=== PATIENT | female | born 1965 | race Caucasian/White ===

== ENCOUNTER 2019-11-16 08:29 | Outpatient (CLI) | payer BC, SELFPAY ==
[2019-11-16 09:39] LABS: Basophils Absolute Auto 0.1 K/mm3 (0.0-0.1); Basophils Percent Auto 0.7 % (0.2-1.2); Eosinophils Absolute Auto 0.2 K/mm3 (0-0.3); Eosinophils Percent Auto 2.5 % (0-4.4); Hematocrit 40.9 % (37.0-47.0); Hemoglobin 12.3 g/dL (12.0-15.0); Immature Granulocyte Absolute 0.03 K/mm3 (0.00-0.031); Immature Granulocyte Percent A 0.4 % (0-0.5); Lymphocytes Absolute Auto 2.37 K/mm3 (0.9-3.2); Mean Corpuscular HGB Conc 30.1 g/dl (32-36); Mean Corpuscular Hemoglobin 20.6 pg (26-34); Mean Corpuscular Volume 68.4 fl (80-100); Monocytes Absolute Auto 0.4 K/mm3 (0.1-0.6); Monocytes Percent Auto 6.1 % (2.6-8.5); Neutrophils Absolute Auto 4.1 K/mm3 (1.3-6.7); Neutrophils Percent Auto 57.3 % (45.5-73.1); Platelet Count Result 384 k/mm3 (150-375); Red Blood Count 5.98 M/mm3 (4.2-5.4); Red Cell Distribution Width 19.9 % (11.5-14.5); White Blood Count 7.2 K/mm3 (4.5-10.0)
[2019-11-16 09:56] LABS: Alanine Aminotransferase 55 U/L (4-35); Albumin Level 4.4 g/dL (3.5-5.1); Alkaline Phosphatase 123 U/L (38-126); Aspartate Amino Transferase 35 U/L (14-36); Bilirubin,Total 0.4 mg/dL (0.2-1.3); Blood Urea Nitrogen 18 mg/dL (7-17); Calcium 9.7 mg/dL (8.4-10.2); Carbon Dioxide 29 mmol/L (22-30); Chloride 98 mmol/L (98-107); Cholesterol 212 mg/dL (0-200); Creatine Kinase 65 U/L (30-135); Estimated Glomerular Filt Rate > 60; Glucose 135 mg/dL (65-105); HDL Direct 57 mg/dL; Potassium 4.4 mmol/L (3.4-5.0); Sodium 141 mmol/L (137-145); Triglycerides 153 mg/dL (<150); Uric Acid 3.9 mg/dL (2.5-7.5)
[2019-11-16 10:04] LABS: Creatinine Urine 219.3 mg/dL
[2019-11-16 10:07] LABS: LDL Cholesterol Direct 119 mg/dL
[2019-11-16 10:11] LABS: MALB Creatinine Ratio 5.2 mg/g (0-30); Microalbumin Urine Random 11.4 mg/L (0-16.7)
[2019-11-16 10:23] LABS: Vitamin D 25 Hydroxy 20.9 ng/mL
[2019-11-16 10:35] LABS: Add Urine Microscopic? YES; Appearance Urine Cloudy (Clear); Bacteria Urine Trace /hpf; Bilirubin Urine Negative (Negative); Blood Urine Negative (Negative); Color Urine Yellow (Yellow); Glucose Urine UA 3+ mg/dL (Negative); Ketones Urine Negative (Negative); Leukocyte Esterase Ur Negative LEU/UL (Negative); Mucus Urine Rare /lpf; Nitrate Urine Negative (Negative); Protein Urine Negative (Negative); Specific Grav Ur 1.036 (1.001-1.035); Squamous Epithelial Cell Urine Many /hpf (Few); Urobilinogen Urine Negative mg/dL (<2.0)
== END 2019-11-16 08:30 | disposition home or self-care (01) ==
PROVIDERS: PCP Nurse Practitioner Family; Visit Provider Student in an Organized Health Care Education/Training Program
DX: Z13.29 Encounter for screening for other suspected endocrine disorder (principal); Z13.228 Encounter for screening for other metabolic disorders; Z13.0 Encounter for screening for diseases of the blood and blood-forming organs and certain disorders involving the immune mechanism; E11.9 Type 2 diabetes mellitus without complications; Z79.4 Long term (current) use of insulin
CPT/HCPCS: 36415; 80053; 80061; 81001; 82043; 82306; 82550; 84443; 84550; 85025

== ENCOUNTER 2020-05-15 08:10 | Outpatient (CLI) | payer BC, SELFPAY ==
[2020-05-15 08:42] LABS: Cholesterol 156 mg/dL (0-200); HDL Direct 46 mg/dL; Triglycerides 132 mg/dL (<150)
[2020-05-15 08:55] LABS: LDL Cholesterol Direct 80 mg/dL
== END 2020-05-15 08:11 | disposition home or self-care (01) ==
PROVIDERS: PCP Nurse Practitioner Family; Visit Provider Nurse Practitioner Family
DX: Z13.220 Encounter for screening for lipoid disorders (principal)
CPT/HCPCS: 36415; 80061

== ENCOUNTER 2020-12-19 07:19 | Outpatient (CLI) | payer BC, SELFPAY ==
[2020-12-19 07:43] LABS: Basophils Percent Auto 0.6 % (0.2-1.2); Eosinophils Absolute Auto 0.1 K/mm3 (0-0.3); Hematocrit 41.9 % (37.0-47.0); Hemoglobin 12.9 g/dL (12.0-15.0); Immature Granulocyte Absolute 0.02 K/mm3 (0.00-0.031); Immature Granulocyte Percent A 0.3 % (0-0.5); Lymphocytes Absolute Auto 1.95 K/mm3 (0.9-3.2); Lymphocytes Percent Auto 27.3 % (18.3-44.2); Mean Corpuscular HGB Conc 30.8 g/dl (32-36); Mean Corpuscular Hemoglobin 22.1 pg (26-34); Mean Corpuscular Volume 71.6 fl (80-100); Mean Platelet Volume 8.9 fl (7.4-10.4); Monocytes Absolute Auto 0.5 K/mm3 (0.1-0.6); Monocytes Percent Auto 6.9 % (2.6-8.5); Neutrophils Absolute Auto 4.5 K/mm3 (1.3-6.7); Neutrophils Percent Auto 62.9 % (45.5-73.1); Platelet Count Result 309 k/mm3 (150-375); Red Blood Count 5.85 M/mm3 (4.2-5.4); Red Cell Distribution Width 17.4 % (11.5-14.5); White Blood Count 7.1 K/mm3 (4.5-10.0)
[2020-12-19 07:52] LABS: Hemoglobin A1C 6.9 % (<5.7)
[2020-12-19 07:54] LABS: Alanine Aminotransferase 37 U/L (4-35); Albumin Level 4.5 g/dL (3.5-5.1); Alkaline Phosphatase 93 U/L (38-126); Anion Gap 6 mmol/L (8-16); Aspartate Amino Transferase 31 U/L (14-36); Bilirubin,Total 0.1 mg/dL (0.2-1.3); Blood Urea Nitrogen 16 mg/dL (7-17); Calcium 9.5 mg/dL (8.4-10.2); Carbon Dioxide 31 mmol/L (22-30); Chloride 103 mmol/L (98-107); Cholesterol 207 mg/dL (0-200); Estimated Glomerular Filt Rate > 60; Glucose 135 mg/dL (65-105); HDL Direct 58 mg/dL; Potassium 4.1 mmol/L (3.4-5.0); Sodium 140 mmol/L (137-145); Triglycerides 125 mg/dL (<150)
[2020-12-19 08:05] LABS: LDL Cholesterol Direct 107 mg/dL
[2020-12-19 08:09] LABS: Creatinine Urine 163.3 mg/dL
[2020-12-19 08:12] LABS: MALB Creatinine Ratio 19.5 mg/g (0-30); Microalbumin Urine Random 31.9 mg/L (0-16.7)
[2020-12-22 09:16] LABS: Vitamin D 1,25 (OH)2 Total 32 pg/mL (18-72); Vitamin D2 1,25 (OH)2 <8 pg/mL; Vitamin D3 1,25 (OH)2 32 pg/mL
== END 2020-12-19 07:20 | disposition home or self-care (01) ==
PROVIDERS: PCP Nurse Practitioner Family; Visit Provider Student in an Organized Health Care Education/Training Program
DX: E11.9 Type 2 diabetes mellitus without complications (principal); Z79.4 Long term (current) use of insulin; E03.9 Hypothyroidism, unspecified; R79.89 Other specified abnormal findings of blood chemistry; I10 Essential (primary) hypertension
CPT/HCPCS: 36415; 80053; 80061; 82043; 82652; 83036; 84443; 85025

== ENCOUNTER 2021-03-06 07:33 | Outpatient (CLI) | payer BC, SELFPAY ==
[2021-03-06 08:38] LABS: Alanine Aminotransferase 35 U/L (4-35); Albumin Level 4.3 g/dL (3.5-5.1); Alkaline Phosphatase 98 U/L (38-126); Aspartate Amino Transferase 33 U/L (14-36); Bilirubin,Total 0.5 mg/dL (0.2-1.3)
[2021-03-06 11:50] LABS: Iron 45 ug/dL (37-170); Percent Iron Saturation 11 % (20-50)
[2021-03-06 12:13] LABS: Ferritin 6.73 ng/mL (11.1-264)
== END 2021-03-06 07:34 | disposition home or self-care (01) ==
PROVIDERS: PCP Nurse Practitioner Family; Visit Provider Student in an Organized Health Care Education/Training Program
DX: R74.8 Abnormal levels of other serum enzymes (principal); R79.89 Other specified abnormal findings of blood chemistry
CPT/HCPCS: 36415; 80076; 82728; 83540; 83550

== ENCOUNTER 2021-07-05 11:34 | Emergency (ER) | payer BC, SELFPAY ==
--- NOTE | ~2021-07-05 | XR_ITS ---
XR chest 1V portable DATE: 07/05/2021 12:29 INDICATION: Shortness of breath, tachycardia. Hypertension. TECHNIQUE: Portable upright AP chest on 07/05/2021 at 1220 hours COMPARISON: 11/06/2015 PA and lateral chest FINDINGS: Normal heart size. No hilar or mediastinal enlargement. No pulmonary infiltrate or consolid ation. There is slight blunting of the costophrenic angles; minimal pleural effusions are not exclude d. No pneumothorax. Included skeletal structures are unremarkable. IMPRESSION: No active cardiopulmonary disease Reviewed, dictated and finalized at location A.
[2021-07-05 11:43] VITALS: BP 174/105; PULSE 124; RESP 19; TEMP 37.1; O2SAT 99
[2021-07-05 11:47] VITALS: PULSE 124
[2021-07-05 11:48] VITALS: O2SAT 99
--- NOTE | 2021-07-05 11:50 | ECG_ITS ---
Measurements Intervals [place] Rate: 117 P: 45 DE: 164 QRS: -5 QRSD: 97 T: 89 QT: 269 QTc: 376 Interpretive Statements SINUS TACHYCARDIA DELAYED PRECORDIAL R/S TRANSITION CONSIDER INFERIOR INFARCT, AGE INDETERMINATE BORDERLINE ST-T WAVE ABNORMALITY- HIGH LATERAL LEADS BASELINE ARTIFACT- I, II, III, AVR, AVL, AVF, V1-V6 ABNORMAL ECG Electronically Signed On 07-05-2021 18:11:35 CDT by Arian Can D.O.
--- NOTE | 2021-07-05 12:06 | ED.SOB ---
HPI - SOB/Dyspnea General Chief Complaint: Shortness of Breath/Dyspnea Stated Complaint: DUMAS, SOB, bodyaches, covid vaccinated Time Seen by Provider: 07/05/21 12:04 Source: patient Mode of arrival: ambulatory Limitations: no limitations History of Present Illness HPI Narrative: 56-year-old female with no significant past medical history complaining 3 days of headache body aches and now with nausea starting this morning. Does complain of fever and chills at home, no vomiting, no abdominal pain. No chest pain, no cough. Patient states she did get her cope vaccine in February and March [employer]. No other complaints patient did not get influenza shot. No known sick contacts. Related Data Allergies Allergy/AdvReac Type Severity Reaction Status Date / Time No Known Allergies Allergy Verified 07/05/21 11:50 Review of Systems Review of Systems: CONSTITUTIONAL: fever at home, no weight loss, no confusion EYES: no vision changes, no eye pain ENT: no rhinorrhea, no sore throat, no difficulty swallowing CARDIOVASCULAR: no chest pain, no leg edema, no palpitations RESPIRATORY: positive for cough, positive for shortness of breath, no hemoptysis GASTROINTESTINAL: no abdominal pain, positive for nausea, no vomiting, no diarrhea GENITOURINARY: no flank pain, no dysuria, no hematuria SKIN: no rash, no jaundice MUSCULOSKELETAL: no back pain, no trauma. NEUROLOGIC: No headache, no dizziness, no focal weakness PSYCHIATRIC: No hallucinations, no suicidal ideation [facility] Family History Family History Mother Hypertension Family history of kidney disease Family history of diabetes mellitus in first degree relative Family history of heart disease in male family member before age 55 Social History Social History Alcohol intake: never Exam Narrative: General: alert, afebrile, answering all questions appropriately Head: normocephalic, atraumatic Eyes: EOMI bilaterally, anicteric, no injection ENT: moist mucous membranes, oropharynx patent, no rhinorrhea Neck: supple, trachea midline, no JVD Chest: equal chest rise bilaterally, no chest wall trauma noted Lungs: clear to auscultation bilaterally, respirations unlabored CV: tachycardia, no ALEXIS B, calf size equal bilaterally Abd: soft, non-distended, non-tender, no rebound, no gaurding, negative Varela's : no CVA tenderness B, bladder non-distended Back: no lumbar bony tenderness. paraspinal muscles without spasm EXT: no deformity noted, moving all extremities equally Skin: warm, dry, no pallor Neuro: alert, oriented x 3; CN 2-12 grossly intact, no dysarthria Psych: affect appropriate, though content normal Course Course Emergency Course: Patient remained afebrile in the ED 100% on room air. Pulse is 97 at rest, increases with activity patient got 2 L of fluid, feels somewhat better no headache, ambulating without difficulty. Spoke at length with patient regarding results. She will return immediately fever, intractable vomiting, increasing shortness of breath inability to tolerate fluids or medications or worsening pain. She will follow up with her primary doctor this week. No vomiting in the ED, tolerating p.o., abdomen soft and afebrile. Vital Signs Vital signs: Vital Signs Temperature 37.1 C 07/05/21 11:43 Pulse Rate 124 H 07/05/21 11:43 Respiratory Rate 19 07/05/21 11:43 Blood Pressure 174/105 H 07/05/21 11:43 Pulse Oximetry 99 07/05/21 11:43 Temperature 37.1 C 07/05/21 11:43 Pulse Rate 110 H 07/05/21 14:53 Respiratory Rate 22 H 07/05/21 14:53 Blood Pressure 130/93 H 07/05/21 14:53 Pulse Oximetry 100 07/05/21 14:53 MDM - SOB/Dyspnea Differential Diagnosis Differential diagnosis: Likely community acquired pneumonia and other (viral syndrome, COVID, influenza, UTI) Lab Data Result diagrams: 07/05/21 12:04 07/05/21 12:04
[2021-07-05 12:13] LABS: Basophils Absolute Auto 0.1 K/mm3 (0.0-0.1); Basophils Percent Auto 0.5 % (0.2-1.2); Eosinophils Absolute Auto 0.1 K/mm3 (0-0.3); Eosinophils Percent Auto 0.5 % (0-4.4); Hematocrit 35.1 % (37.0-47.0); Hemoglobin 11.2 g/dL (12.0-15.0); Immature Granulocyte Absolute 0.06 K/mm3 (0.00-0.031); Immature Granulocyte Percent A 0.5 % (0-0.5); Lymphocytes Absolute Auto 3.39 K/mm3 (0.9-3.2); Lymphocytes Percent Auto 30.8 % (18.3-44.2); Mean Corpuscular HGB Conc 31.9 g/dl (32-36); Mean Corpuscular Hemoglobin 22.6 pg (26-34); Mean Corpuscular Volume 70.8 fl (80-100); Mean Platelet Volume 9.2 fl (7.4-10.4); Monocytes Absolute Auto 0.6 K/mm3 (0.1-0.6); Monocytes Percent Auto 5.7 % (2.6-8.5); Neutrophils Absolute Auto 6.8 K/mm3 (1.3-6.7); Platelet Count Result 368 k/mm3 (150-375); Red Blood Count 4.96 M/mm3 (4.2-5.4)
[2021-07-05 12:20] LABS: Anion Gap 13 mmol/L (8-16); Blood Urea Nitrogen 36 mg/dL (7-17); Calcium 9.5 mg/dL (8.4-10.2); Carbon Dioxide 25 mmol/L (22-30); Chloride 100 mmol/L (98-107); Estimated CRCL calculation 82 ml/min; Estimated Glomerular Filt Rate > 60; Glucose 191 mg/dL (65-110); Potassium 3.3 mmol/L (3.4-5.0); Sodium 138 mmol/L (137-145)
[2021-07-05] MEDS: SODIUM CHLORIDE 0.9% IV 1,000 ML 999 ML IV CONT (12:23)
[2021-07-05] MEDS: ONDANSETRON INJ 4 MG/2 ML VIAL IV PUSH (12:24)
[2021-07-05 12:30] VITALS: BP 135/86; PULSE 106; RESP 16; O2SAT 99
[2021-07-05 13:26] LABS: Add Urine Microscopic? YES; Appearance Urine Clear (Clear); Bilirubin Urine Negative (Negative); Blood Urine 1+ (Negative); Color Urine Straw (Yellow); Glucose Urine UA 3+ mg/dL (Negative); Ketones Urine Negative (Negative); Leukocyte Esterase Ur Negative LEU/UL (Negative); Mucus Urine Rare /lpf; Nitrate Urine Negative (Negative); Protein Urine Negative (Negative); RBC Urine 0-2 /hpf (0-2); Specific Grav Ur 1.026 (1.001-1.035); Squamous Epithelial Cell Urine Occasional /hpf (Few); Urobilinogen Urine Negative mg/dL (<2.0); WBC Urine 0-3 /hpf
[2021-07-05 13:40] VITALS: BP 125/75; PULSE 91; RESP 14; O2SAT 100
[2021-07-05 14:53] VITALS: BP 130/93; PULSE 110; RESP 22; O2SAT 100
== END 2021-07-05 14:57 | disposition home or self-care (01) ==
PROVIDERS: Emergency Medicine; Emergency Provider Emergency Medicine; PCP Nurse Practitioner Family
DX: B34.9 Viral infection, unspecified (principal); E86.0 Dehydration; R00.0 Tachycardia, unspecified; R94.31 Abnormal electrocardiogram [ECG] [EKG]
CPT/HCPCS: 36415; 71045; 80048; 81001; 85025; 87804; 93005; 96361; 96374; 99284; J2405; J7030

== ENCOUNTER 2022-09-14 12:15 | Emergency (ER) | payer BC, SELFPAY ==
[2022-09-14] VITALS (24 sets, daily range): BP systolic 114–147; BP diastolic 57–89; PULSE 78–118; RESP 13–27; TEMP 37.3; O2SAT 94–100
--- NOTE | ~2022-09-14 | US_ITS ---
US abdomen limited DATE: 09/14/2022 19:10 INDICATION: Vomiting. Transaminitis. TECHNIQUE: Real-time imaging of liver, pancreas, gallbladder COMPARISON: 09/14/2022 CT abdomen pelvis FINDINGS: No hepatic or pancreatic space-occupying mass lesion is demonstrated. Normal hepatopedal po rtal venous flow direction. No gallstones or gallbladder wall thickening or abnormal pericholecystic fluid collection. Negative s onographic Varela's sign. Common bile duct measures 4.9 mm, within normal limits. IMPRESSION: No significant abnormality Reviewed, dictated and finalized at Location [facility]. Reviewed, dictated and finalized at location A. R MEDIATOR IMPRESSION: No significant abnormality
--- NOTE | ~2022-09-14 | CT_ITS ---
EXAMINATION: CT abdomen pelvis w con DATE: 09/14/2022 18:08 INDICATION: Nausea and vomiting. Transaminitis. TECHNIQUE: Computed tomography (CT) of the abdomen and pelvis was performed with 100 CC Omnipaque 350 intravenous contrast. Automated exposure control and iterative reconstruction technique were employe d. Exam dose: 1069.94 mGy-cm total exam DLP. COMPARISON: 09/14/2022 Limited abdominal ultrasound is not available at this time FINDINGS: The lung bases are clear. Normal heart size. No pericardial or pleural effusion. Small sliding hiatal hernia. Postoperative change of the stomach. 8 mm cyst of the medial segment of the left hepatic lobe. No other hepatic space-occupying mass lesio n is evident. The gallbladder is present; no gallbladder wall thickening or pericholecystic fluid or fat stranding. No bile duct dilatation. No pancreatic mass lesion or pancreatic duct dilatation. Normal morphology of the adrenal glands. No renal mass lesion no ureteral calculus or hydroureteronephrosis. The urinary bladder, uterus and a dnexal areas are unremarkable. Normal caliber of the abdominal aorta. No intraperitoneal or retroperitoneal or pelvic mass lesion or adenopathy or ascites. No bowel obstruction, bowel wall thickening, pneumatosis or intraperitoneal free air. Small fat-containing umbilical hernia. No suspicious osteolytic or osteoblastic lesions. Degenerative changes apophyseal joints at L5-S1 with associated grade 1 anterolisthesis at this level . IMPRESSION: Small sliding hiatal hernia Postoperative change of the stomach No bowel obstruction or free air 8 mm segment left hepatic cyst Reviewed, dictated and finalized at [facility]. Reviewed, dictated and finalized at location A. ING DIRECTOR
--- NOTE | ~2022-09-14 | XR_ITS ---
Clinical Indication: Syncope PA and lateral views of the chest: Comparison: 07/05/2021 Findings: The lungs are clear, without evidence of focal consolidation or pleural effusion. Cardiome diastinal silhouette is within normal limits. Bones and soft tissues are unremarkable. Impression: Normal chest. Reviewed, dictated and finalized at location . SHED HARDWARE ERECTOR Impression: Normal chest.
[2022-09-14 13:05] LABS: Glucose Point of Care 196 mg/dl (65-105)
--- NOTE | 2022-09-14 16:03 | ECG_ITS ---
Measurements Intervals [place] Rate: 116 P: 34 NH: 172 QRS: 4 QRSD: 94 T: 11 QT: 355 QTc: 494 Interpretive Statements SINUS TACHYCARDIA NONSPECIFIC ST AND T-WAVE ABNORMALITY ABNORMAL RHYTHM ECG COMPARED TO ECG 07/05/2021 11:51:57 NO SIGNIFICANT CHANGES Electronically Signed On 09-15-2022 17:46:52 [employer]ACHER [employer]IVATE by Beni Zamorano M.D.
[2022-09-14 16:28] LABS: Alanine Aminotransferase 323 U/L (6-35); Albumin Level 4.6 g/dL (3.5-5.1); Alkaline Phosphatase 136 U/L (38-126); Anion Gap 11 mmol/L (8-16); Aspartate Amino Transferase 213 U/L (14-36); Bilirubin,Total 0.5 mg/dL (0.2-1.3); Blood Urea Nitrogen 19 mg/dL (7-17); Calcium 8.6 mg/dL (8.4-10.2); Carbon Dioxide 23 mmol/L (22-30); Chloride 95 mmol/L (98-107); Estimated CRCL calculation 106 ml/min; Estimated Glomerular Filt Rate > 60; Glucose 180 mg/dL (65-110); Lipase 214 U/L (23-300); Potassium 3.7 mmol/L (3.4-5.0); Sodium 129 mmol/L (137-145)
[2022-09-14] MEDS: SODIUM CHLORIDE 0.9% IV 1,000 ML 999 ML IV CONT (16:36)
[2022-09-14 16:40] LABS: Troponin I < 0.012 ng/mL (0.000-0.034)
--- NOTE | 2022-09-14 16:53 | ED.NAVMDI ---
HPI - Nausea/Vomiting/Diarrhea General Chief complaint: Nausea/Vomiting/Diarrhea Stated complaint: nausea/syncopal episode Time Seen by Provider: 09/14/22 16:03 Source: patient Mode of arrival: ambulatory Limitations: no limitations History of Present Illness HPI Narrative: This is a 57 year old female that presents to the ER for syncopal episode today. Reports she has not been feeling well. Reports abdominal discomfort, nausea, vomiting, chills, and malaise. Reports she thought she was coming down with the flu. She was at her daughter's house, but left to go home since she was not feeling well. Reports she started to feel lightheaded and dizzy. Reports she pulled over and passed out. Denies fever, chest pain, shortness of breath, palpitations, diarrhea, or dysuria. Related Data Allergies Allergy/AdvReac Type Severity Reaction Status Date / Time No Known Allergies Allergy Verified 07/05/21 11:50 Review of Systems Review of Systems: CONSTITUTIONAL: Reports chills. Denies fever EYES: Denies visual changes ENT: Denies rhinorrhea, congestion, sore throat CARDIOVASCULAR: Denies chest pain, palpitations, or edema. RESPIRATORY: Denies cough or dyspnea. GASTROINTESTINAL: Reports abdominal pain, nausea, vomiting GENITOURINARY: Denies dysuria or hematuria. SKIN: Denies rash MUSCULOSKELETAL: Reports myalgia. NEUROLOGIC: Reports generalized weakness. All systems reviewed & are unremarkable except as noted in HPI and below PMFSH Past Medical History Medical History (Updated 09/14/22 @ 20:30 by Lety Drake PA-C) History of diabetes mellitus History of hyperlipidemia History of hypertension History of hypothyroidism Family History Family History Mother Hypertension Family history of kidney disease Family history of diabetes mellitus in first degree relative Family history of heart disease in male family member before age 55 Social History Social History (Updated 09/14/22 @ 17:00 by Lety Drake PA-C) Alcohol intake: never Substance use: never Exam Narrative: GENERAL: Well-appearing, well-nourished, and in no acute distress. HEAD: Normocephalic, atraumatic. EYES: EOMI. ENT: Nares clear, no rhinorrhea or epistaxis. Mucous membranes moist. Oropharynx without tonsillar hypertrophy exudate or other lesions. Bilateral TMs pearly cornelius non-bulging NECK: Supple. No adenopathy or masses. CHEST: Clear to auscultation. No respiratory distress. No wheezes rales or rhonchi HEART: Regular rate and rhythm. No murmur heard. Normal peripheral pulses. ABDOMEN: Soft, nontender, nondistended, normal active bowel sounds. EXTREMITIES: Normal range of motion. No edema. SKIN: Warm, dry, no rash. NEURO: No focal deficits. Alert and oriented x3. PSYCH: Normal mood and affect Course Vital Signs Vital signs: Vital Signs Temperature 99.2 F 09/14/22 12:55 Pulse Rate 115 H 09/14/22 12:55 Respiratory Rate 16 09/14/22 12:55 Blood Pressure 147/72 H 09/14/22 12:55 Pulse Oximetry 100 09/14/22 12:55 Oxygen Delivery Room Air 09/14/22 12:55 Temperature 99.2 F 09/14/22 12:55 Pulse Rate 115 H 09/14/22 12:55 Respiratory Rate 16 09/14/22 12:55 Blood Pressure 147/72 H 09/14/22 12:55 Pulse Oximetry 100 09/14/22 12:55 Oxygen Delivery Room Air 09/14/22 12:55 MDM - Nausea/Vomiting/Diarrhea MDM Narrative Medical decision making narrative: Patient presents to the ER after a syncopal episode today. She is afebrile and nontoxic appearing. Mildly tachycardic upon arrival. Heart rate normalized with IV fluid administration. CBC without concerning findings. Metabolic panel with some evidence of dehydration with a sodium of 129 and chloride of 95. Also shows transaminitis with AST of 213 and ALT of 323. Her lipase is normal. EKG without concerning changes and baseline troponin is negative. Her D-dimer is also not elevated. No evidence for infection
[2022-09-14 16:55] LABS: Influenza A QL RT-PCR Negative (Negative); Influenza B QL RT-PCR Negative (Negative); SARS-CoV-2 RNA PCR Negative
[2022-09-14 17:08] LABS: Basophils Percent Auto 0.3 % (0.2-1.2); Eosinophils Percent Auto 0.1 % (0-4.4); Hematocrit 44.7 % (37.0-47.0); Hemoglobin 14.2 g/dL (12.0-15.0); Immature Granulocyte Absolute 0.04 K/mm3 (0.00-0.031); Immature Granulocyte Percent A 0.4 % (0-0.5); Lymphocytes Absolute Auto 0.43 K/mm3 (0.9-3.2); Lymphocytes Percent Auto 4.2 % (18.3-44.2); Mean Corpuscular HGB Conc 31.8 g/dl (32-36); Mean Corpuscular Hemoglobin 24.3 pg (26-34); Mean Corpuscular Volume 76.4 fl (80-100); Mean Platelet Volume 9.1 fl (7.4-10.4); Monocytes Absolute Auto 0.3 K/mm3 (0.1-0.6); Neutrophils Absolute Auto 9.5 K/mm3 (1.3-6.7); Platelet Count Result 228 k/mm3 (150-375); Red Blood Count 5.85 M/mm3 (4.2-5.4); Red Cell Distribution Width 17.7 % (11.5-14.5); White Blood Count 10.3 K/mm3 (4.5-10.0)
[2022-09-14 17:20] LABS: Add Urine Microscopic? YES; Appearance Urine Clear (Clear); Bilirubin Urine Negative (Negative); Blood Urine Negative (Negative); Color Urine Light Yellow (Yellow); Glucose Urine UA 3+ mg/dL (Negative); Ketones Urine Negative (Negative); Leukocyte Esterase Ur Negative LEU/UL (Negative); Nitrate Urine Negative (Negative); Protein Urine Negative (Negative); Urobilinogen Urine 0.2 mg/dL (<2.0)
[2022-09-14 17:28] LABS: Squamous Epithelial Cell Urine Many /hpf (Few); WBC Urine 0-3 /hpf
[2022-09-14 22:14] LABS: HAV RESULT Negative (Negative); Hepatitis B Core IgM Result Negative (Negative); Hepatitis B Surface Antigen Negative (Negative)
[2022-09-14 22:16] LABS: Hepatitis C Virus Antibody Negative (Negative)
== END 2022-09-14 20:48 | disposition home or self-care (01) ==
PROVIDERS: Emergency Provider Physician Assistant; PCP Nurse Practitioner Family
DX: R55 Syncope and collapse (principal); K76.89 Other specified diseases of liver; E87.1 Hypo-osmolality and hyponatremia; R74.01 Elevation of levels of liver transaminase levels; Z20.822 Contact with and (suspected) exposure to COVID-19; E11.9 Type 2 diabetes mellitus without complications; E78.5 Hyperlipidemia, unspecified; I10 Essential (primary) hypertension; E03.9 Hypothyroidism, unspecified; K44.9 Diaphragmatic hernia without obstruction or gangrene
CPT/HCPCS: 36415; 71046; 74177; 76705; 80053; 80074; 81001; 82948; 83690; 84484; 85025; 85380; 87636; 93005; 96361; 96374; 99284; J0131; J7030; Q9967

== ENCOUNTER 2024-10-27 16:03 | Emergency (ER) | payer BC, SELFPAY ==
--- NOTE | 2024-10-27 16:55 | ED_ITS ---
HPI - URI/Sore Throat General Chief Complaint: Upper Respiratory Infection Stated Complaint: Sinus/Cough Time Seen by Provider: 10/27/24 16:55 Source: patient Mode of arrival: ambulatory Limitations: no limitations History of Present Illness HPI Narrative: 59-year-old female presented for complaint of nasal congestion, cough and chest congestion for 2 weeks. Taking Delsym. was in symptoms. Denies associated shortness of breath wheezing diarrhea, fever lethargy. Related Data Home Medications ?Medication ?Instructions ?Recorded ?Confirmed ?Last Taken ?Type atorvastatin 10 mg tablet mg 10/27/24 Unknown History levothyroxine 137 mcg tablet mcg 10/27/24 Unknown History losartan 50 mg tablet mg 10/27/24 Unknown History montelukast 10 mg tablet mg 10/27/24 Unknown History sertraline 100 mg tablet mg 10/27/24 Unknown History tirzepatide 2.5 mg/0.5 mL mg subcut 10/27/24 Unknown History subcutaneous pen injector (Mounjaro) triamterene 37.5 cap 10/27/24 Unknown History mg-hydrochlorothiazide 25 mg capsule Allergies Allergy/AdvReac Type Severity Reaction Status Date / Time No Known Allergies Allergy Verified 10/27/24 16:53 Review of Systems Review of Systems: CONSTITUTIONAL: Denies body aches, fever, chills, or sweats. EYES: Denies visual changes, redness, or discharge. ENT: reports rhinorrhea, congestion, denies sore throat, or otalgia. CARDIOVASCULAR: Denies chest pain, palpitations, or edema. RESPIRATORY: Reports cough, denies sob, wheezing. GASTROINTESTINAL: Denies abdominal pain, nausea, vomiting, or diarrhea. MUSCULOSKELETAL: Denies back pain, joint pain, or myalgia. NEUROLOGIC: Denies headache, numbness, tingling, or weakness. All systems reviewed & are unremarkable except as noted in HPI and below PMFSH Past Medical History Medical History History of hypothyroidism History of diabetes mellitus History of hyperlipidemia History of hypertension Family History Family History Mother Hypertension Family history of kidney disease Family history of diabetes mellitus in first degree relative Family history of heart disease in male family member before age 55 Social History Social History Alcohol intake: never Substance use: never Comments At time of signature, I have reviewed and agree with nursing past medical, surgical, social and family history unless otherwise noted. Please see nursing chart for further information. There is no relevant family history pertinent to the presenting complaint Exam Narrative: GENERAL: mildly ill-appearing, in no acute distress. EYES: EOMI. No redness or drainage. Conjunctivae normal. ENT: Mucous membranes pink and moist. No rhinorrhea. TMs normal bilaterally. Throat normal. Uvula midline. CHEST: No respiratory distress. lungs clear to all poe. HEART: Regular rate and rhythm. No murmur appreciated. SKIN: Warm, dry, no rash. Capillary refill normal. Normal skin turgor. NEURO: Alert and oriented x3. Gait steady. PSYCH: Normal affect. Course Course Emergency Course: Patient is aware of diagnosis, understands and agrees to treatment plan. Anticipatory guidance given. Patient agrees to follow-up as directed and is aware of reasons to seek care at the emergency department. Portions of this record may have been created with voice recognition software Level of Care: Express Care Visit MDM - URI/Sore Throat MDM Narrative Medical decision making narrative: Discussed physical exam findings. Advised supportive measures and signs/symptoms to go to the ER. Pt is appropriate for outpt treatment and f/u. Differential Diagnosis Differential diagnosis: Likely upper respiratory infection, otitis media, sinusitis, viral infection, bronchitis, influenza and pharyngitis Discharge Plan Discharge Clinical Impression: Sinusitis, Bronchitis Patient Disposition: Home, Self-Care Condition: Stable Instructions: Antibiotic Form, Sinusitis (ED), Acute Bronchitis (ED) Additional Instructions: Flonase spray and Zyrtec (or Claritin/Kim) over the counter Cough syrup may cause drowsiness; avoid driving or take it at night time. Tylenol 1000mg every 8 hours as needed for pain rest, fluids, and increase humidity of the air at home. Follow up with your primary care provider in 1 week. Go to the ER for worsening symptoms or concerns. Patient Language: Portuguese Prescriptions: New prednisone 20 mg tablet 40 mg PO DAILY 5 Days Qty: 10 0RF amoxicillin-pot clavulanate 875-125 mg tablet 1 tablet PO Q12H 7 Days Qty: 14 0RF No Action losartan 50 mg tablet levothyroxine 137 mcg tablet atorvastatin 10 mg tablet sertraline 100 mg tablet triamterene-hydrochlorothiazid 37.5-25 mg capsule montelukast 10 mg tablet Mounjaro 2.5 mg/0.5 mL pen injector SUBCUT ondansetron 4 mg tablet,disintegrating 4 mg PO Q6H PRN (Reason: nausea and vomiting) Qty: 20 0RF Follow-up/Referrals: TALIB,AUDREY MARTINEZ [Primary Care Provider] - Time of Disposition: 17:05
[2024-10-27 17:00] VITALS: BP 130/81; PULSE 98; RESP 18; TEMP 36.7; O2SAT 99
== END 2024-10-27 17:10 | disposition home or self-care (01) ==
PROVIDERS: Emergency Provider Nurse Practitioner Family; PCP Nurse Practitioner Family
DX: J32.9 Chronic sinusitis, unspecified (principal); J40 Bronchitis, not specified as acute or chronic; E11.9 Type 2 diabetes mellitus without complications; I10 Essential (primary) hypertension; E78.5 Hyperlipidemia, unspecified; E03.9 Hypothyroidism, unspecified
CPT/HCPCS: 99213; G0463

== ENCOUNTER 2024-11-09 10:41 | Emergency (ER) | payer BC, SELFPAY ==
--- NOTE | ~2024-11-09 | XR_ITS ---
EXAMINATION: XR humerus RT DATE: 11/09/2024 12:09 INDICATION: Right upper arm pain. Fall. TECHNIQUE: 2 views of right humerus were obtained. COMPARISON: None. FINDINGS: There is a comminuted fracture of proximal right humerus involving the surgical neck and gr eater tuberosity. At the surgical neck, the distal fracture fragment demonstrates 12 mm impaction and 5 mm anterior displacement. There is mild osteoarthritis of glenohumeral joint and moderate osteoart hritis of acromioclavicular joint. IMPRESSION: 1. Comminuted two-part fracture of proximal right humerus. Reviewed, dictated and finalized at location A. RENCE LIBRARY ASSISTANT
[2024-11-09 10:43] VITALS: BP 153/87; PULSE 85; RESP 16; TEMP 36.6; O2SAT 100
--- OUTSIDE RECORDS SUMMARY | 2024-11-09 10:51 | XMS_ITS | Encounter Summary ---
Author Organization [facility] Address [address] [place] [address] Care Team Providers Care Inventory Control Clerk Name Role Phone Zeus Moore MD Primary Care Provider Kyleigh Myers Primary Care Provider [phone] Encounter Details Date Type Department Care Team (Late st Contact Info) Description 05/17/2017 Abstract [facility] CONVERSION [address] [place] [address] , Generic ConversionMD Social History Tobacco Use Types Packs/Day Years Used Date Smoking Tobacco: Never Assessed Comments Unknown Sex and Gender Information Value Date Recorded Sex Assigned at Not on file Legal Sex Female 7:43 PM CDT Gender Identity Female 01/06/2022 8:01 AM CDT Sexual Orientation Straight 01/06/2022 8: 01 AM CDT documented as of this encounter Plan of Treatment Upcoming Encounters Date Type Department Care Team (Late st Contact Info) Description 12/21/2024 10:00 AM CDT Office Visit [facility] [address] [place] [address] Kyleigh Persaud FNP [facility] [place] [address] documented as of this encounter Visit Diagnoses Not on filedocumented in this encounter Care Teams Inventory Control Clerk Relationship Specialty Start Date End Date Zeus Moore MD PCP - General 10/12/16 04/19/18 Kyleigh Persaud FNP [address] [place] [id number] PCP - General NURSE PRACTITIONER 04/20/18 documented as of this encounter
--- OUTSIDE RECORDS SUMMARY | 2024-11-09 10:51 | XMS_ITS | Continuity of Care Document ---
Author Organization [facility] Address [address] [place] [address] Phone Care Team Providers Care Switchboard Operator Name Role Phone Moran OD, [place] Unavailable Unavailable Procedures Procedure Date Eye Exam & Treatment Eye Exam, New Patient Advance Directives Directive Yes / No Effective Date File Name No Information Encounters Encounter Description Practice Location Reason(s) For Visit Diagnoses Date Provider Providers Copied on Encounter [facility], [address], [place], [place], [id number], [place] tel:[phone] [facility] No Information Sep-2 6-200 8 Moran OD [place]. [address] , [address], [place], [place], [facility] [place]note 2], [place]. tel:[phone] [facility], [address] [place] [address] [address], [place], [place], [id number], tel:[phone] [facility] No Information Apr-0 9-200 7 Moran OD [place]. [address] , [address], [place], [address], [place]. tel:[phone] Referring Provider: Izaiah Soliman, [facility] [facility], [place], [address]. tel:[phone] Family History Family Member Type Diagnosis Age At Onset No Information Payers Payer name Insurance type Covered alliance party ID Authoriza tion(s) No Information Social History Type Description Quantity Date Captured Comments Sex Female Smoking Status No Information Chief Complaint And Reason For Visit No Information Reason For Referral Reason For Referral No Information History Of Present Illness Encounter Date Complaint History Of Prese nt Illness No Information Functional Status Date Functional Assessmen t No Information Instructions Date Instruction Additional Infor mation No Information Assessments Type Assessment Date No Information Patient Care Teams Name Effective Dates (start - stop) Status Members No Information
--- OUTSIDE RECORDS SUMMARY | 2024-11-09 10:51 | XMS_ITS | Clinical Summary ---
Author Organization [facility] Address [address], [facility] [address] [place] [address] Phone Care Team Providers Care Embedded Software Engineer Name Role Phone Kyleigh Persaud APRN, STATION ENGINEER CHIEF Primary Care Provider Vega Hayes MD Unavailable [phone] Allergies No known active allergies Medications Xigduo XR 5-1000 MG TABLET SR 24 HR Take 1 Tablet by mouth 2 times daily. 2 Active losartan (COZAAR) 50 MG Tablet 2 Active triamterene-hyd rochlorothiazid e (DYAZIDE) 37.5-25 MG Capsule Take 1 Capsule by mouth daily. 2 Active ARIPiprazole (ABILIFY) 15 MG Tablet 2 Active sertraline (ZOLOFT) 100 MG Tablet 2 Active atorvastatin (LIPITOR) 10 MG Tablet 2 Active levothyroxine (SYNTHROID) 137 MCG Tablet 2 Active aspirin-acetami nophen-caffeine (EXCEDRIN) 250-250-65 MG Tablet Take 1 Tablet by mouth. Active famotidine (PEPCID) 20 MG Tablet Take 20 mg by mouth. 1 Active Mounjaro 2.5 MG/0.5ML Solution Pen-injector ADMINISTER 0.5 ML UNDER THE SKIN EVERY 7 DAYS FOR DIABETES 3 Active Mounjaro 5 MG/0.5ML Solution Pen-injector 5 mg by Subcutaneous route. Active Multiple Vitamin (MULTI-VITAMIN PO) Take by mouth. Activ e VITAMIN D PO Take by mouth. 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 05/27/2022 Family History Medical History Relation Name Comments Heart Attack Brother Ovarian Cancer Daughter Heart Attack Father Thyroid Disease Father Heart Attack Maternal Grandmother Congestive Heart Failure Mother Ovarian Cancer Sister Relation Name Status Comments Brother Daughter Other Father Maternal Grandmother Mother Sister Social History Tobacco Use Types Packs/Day Years Used Date Smoking Tobacco: Former Cigarettes Q uit: 05/27/1993 Smokeless Tobacco: Never Tobacco Cessation:Counseling Given: Not Answered Alcohol Use Standard Drinks/Week Comments Not Currently 0 (1 standard drink = 0.6 oz pur e alcohol) PHQ-2 Answer Date Recorded Total Score - Questions 1-9 0 09/2021 Comments No Sex and Gender Information Value Date Recorded Sex Assigned at Not on file Legal Sex Female 3:21 PM CDT Gender Identity Not on file Sexual Orientation Not on file Last Filed Vital Signs Vital Sign Reading Time Taken Comments Blood Pressure 120/72 06/01/2024 8:37 AM CDT Pulse 83 06/01/2024 8:37 AM CDT Temperature 36.6 C (97.8 F) 06/01/2024 8:37 AM CDT Respiratory Rate 18 06/01/2024 8:37 AM CDT Oxygen Saturation 99% 06/01/2024 8:37 AM CDT Inhaled Oxygen Concentration - - Weight 70.3 kg (155 lb) 06/01/2024 8:37 AM CDT Height 170.2 cm (5' 7 ) 06/01/2024 8:37 AM CDT Body Mass Index 24.28 06/01/2024 8:37 AM CDT Plan of Treatment Upcoming Encounters Date Type Department Care Team (Late st Contact Info) Description 11/30/2024 9:15 AM DIRECTOR VOLUNTEER SERVICES [facility] [address] [address] Vega Hayes MD [address] [place], [place] [address] Health Maintenance Due Date Last Done Comments Hepatitis C Virus (HCV) Screening 1966 Hepatitis B Immunization (1 of 3 - 19+ 3-dose series) 1985 Pap Smear 1987 Cervical Cancer Screening (CCS) 1996 HPV/Cotest 1996 Cologuard 2016 Immunochemical Fecal Occult Blood 2016 Pneumococcal Immunization (50+ years) (1 of 1 - PCV) 2016 Zoster Immunization (1 of 2) 2016 Influenza Immunization (#1) 2024 09/04/2021, 1 SARS-COV-2 Immunization ( - season) 2024 01/27/2021, 01/05/2021 Mammogram 02/21/2026 02/22/2024, 01/25, 01/06/2022, Additional history exists Colonoscopy 10/21/2027 10/21/2017 Colorectal Cancer Screening 10/21/2027 Respiratory Syncytial Virus (RSV) Immunization (Adult) (1 - 1-dose 75+ series) 2041 10/21/2017 DTaP/Tdap/Td Immunization Discontinued 12/05/2017 TdaP Immunization Completed 12/05/2017 Meningococcal Immunization (ACWY) Aged Out No longer eligible based on patient's age to complete this topic Pneumococcal Immunization Combined Aged Out No longer eligible based on patient's age to complete this topic Rotavirus Immunization Aged Out No lo nger eligible based on patient's age to complete this topic Insurance [facility] Care Teams Embedded Software Engineer Relationship Specialty Start Date End Date Kyleigh Persaud APRN, STATION ENGINEER CHIEF [address] [place] [address] PCP - General Internal Medicine 05/11/22 Vega Hayes MD [address] [place] [phone] Consulting Physician Oncology 05/11/22
--- OUTSIDE RECORDS SUMMARY | 2024-11-09 10:51 | XMS_ITS | Encounter Summary ---
Author Organization [facility] Address [address] [place] [address] Care Team Providers Care Bag Machine Adjuster Name Role Phone Zeus Moore MD Primary Care Provider Zeus Acuña MD Primary Care Provider Klyeigh Myers Primary Care Provider [phone] Encounter Details Date Type Department Care Team (Late st Contact Info) Description 01/16/2016 Abstract [facility] CONVERSION [address] [place] [address] , Kaci Felipe MD Social History Tobacco Use Types Packs/Day Years [...] Description 12/21/2024 10:00 AM CDT Office Visit [facility] Family & Internal Medicine - [address] [address] Kyleigh Persaud FNP [address] [place] [address] documented as of this encounter Visit Diagnoses Not on filedocumented in this encounter Care Teams Bag Machine Adjuster Relationship Specialty Start Date End Date Zeus Moore MD PCP - General 10/12/16 04/19/18 Zeus Moore MD PCP - General 08/09/14 10/11/16 Kyleigh Persaud FNP [address] [place] [address] PCP - General NURSE PRACTITIONER 04/20/18 documented as of this encounter
--- OUTSIDE RECORDS SUMMARY | 2024-11-09 10:51 | XMS_ITS | Encounter Summary ---
Author Organization [facility] Address [address] [place] [address] Care Team Providers Care Laborer Syrup Machine Name Role Phone Zeus Moore MD Primary Care Provider Zeus Acuña MD Primary Care Provider Zeus Acuña MD Primary Care Provider Bria Fabian MD Primary Care Provider Kyleigh Damon Primary Care Provider [phone] Encounter Details Date Type Department Care Team (Late st Contact Info) Description 11/07/[address] [facility] CONVERSION [address] [place] [address] , Kaci Felipe MD Social History Tobacco [...] Description 12/21/2024 10:00 AM CDT Office Visit [facility] Family & Internal Medicine [place] [place] [address] Kyleigh Persaud FNP [address] [place] [address] documented as of this encounter Visit Diagnoses Not on filedocumented in this encounter Care Teams Laborer Syrup Machine Relationship Specialty Start Date End Date Zeus Moore MD PCP - General 10/12/16 04/19/18 Zeus Moore MD PCP - General 08/09/14 10/11/16 Zeus Moore MD PCP - General 01/11/14 08/08/14 Bria Hatfield MD PCP - General 03/13/13 01/10/14 Kyleigh Persaud FNP [address] [place] [address] PCP - General NURSE PRACTITIONER 04/20/18 documented as of this encounter
--- OUTSIDE RECORDS SUMMARY | 2024-11-09 10:51 | XMS_ITS | Encounter Summary ---
Author Organization [facility] Address [address] [place] [address] Phone Care Team Providers Care Director Of Outreach Name Role Phone Kyleigh Persaud APRN, OB/GYN NURSE Primary Care Provider Vega Hayes MD Unavailable [phone] Encounter Details Date Type Department Care Team (Late st Contact Info) Description 03/15/2024 Telephone [facility] [address] [address] Vega Hayes MD [address] [address] Social History Tobacco Use Types Packs/Day Years Used Date Smoking Tobacco: Former Cigarettes Q uit: 05/27/1993 Smokeless Tobacco: Never Alcohol Use Standard Drinks/Week Comments Not Currently 0 (1 standard drink = 0.6 oz pur e alcohol) PHQ-2 Answer Date Recorded Total Score - Questions 1-9 0 09/0 09/2021 Comments No Sex and Gender Information Value Date Recorded Sex Assigned at Not on file Legal Sex Female 3:21 PM CDT Gender Identity Not on file Sexual Orientation Not on file documented as of this encounter Miscellaneous Notes * Telephone Encounter - Marii Shaw - 03/15/2024 12:24 PM CDT Pt missed appt called to rs sent letter out and left vm. documented in this encounter Plan of Treatment Upcoming Encounters Date Type Department Care Team (Late st Contact Info) Description 11/30/2024 9:15 AM SKEIN INSPECTOR Office Visit [facility] [address] [place] [address] Vega Hayes MD [address] [facility] [address] [phone] documented as of this encounter Visit Diagnoses Not on filedocumented in this encounter Care Teams Director Of Outreach Relationship Specialty Start Date End Date Kyleigh Persaud, AMBULATORY ANALYST, OB/GYN NURSE [address] [place] [address] PCP - General Internal Medicine 05/11/22 Vega Hayes MD [address] [place] [phone] Consulting Physician Oncology 05/11/22 documented as of this encounter
--- OUTSIDE RECORDS SUMMARY | 2024-11-09 10:51 | XMS_ITS | Clinical Summary ---
Author Organization [facility] Address [facility] [place] [address] Care Team Providers Care Mechanical And Auto Body Car Checker Name Role Phone Juan Mayers ZARA Primary Care Provider Allergies Active Allergy Reactions Criticality Noted Date Comments Seasonal Runny Nose,Headache,Sneezing,Cough 0 12/23/2023 Medications Blood Glucose Monitoring Suppl (BLOOD GLUCOSE MONITOR SYSTEM) w/Device Kit by Other route 2 (two) times daily. 7 Active Blood Glucose Monitoring Suppl (TRUERESULT BLOOD GLUCOSE) w/Device Kit 2 Active Glucose Blood (BLOOD GLUCOSE TEST STRIPS) Strip 2 (two) times daily. 7 Active Glucose Blood test strip 2 (two) times daily. 2 Active aspirin-acetaminop hen-caffeine 250-250-65 MG tablet Take 1 tablet by mouth every 6 (six) hours as needed for Pain. Active losartan (COZAAR) 50 MG tabletIndications: Primary hypertension take 1 tablet by mouth every day 90 tablet 3 4 Active Dapagliflozin Pro-metFORMIN ER (XIGDUO XR) 5-1000 MG TABLET SR 24 HRIndications:Type 2 diabetes mellitus with diabetic polyneuropathy, with long-term current use of insulin ([facility]) Take 1 tablet by mouth 2 (two) times daily. 180 tablet 1 4 Active levothyroxine (SYNTHROID) 137 MCG tabletIndications: Hypothyroidism take 1 tablet by mouth every day 90 tablet 1 4 Active atorvastatin (LIPITOR) 10 MG tabletIndications: Mixed hyperlipidemia Take 1 tablet (10 mg total) by mouth nightly at bedtime. 90 tablet 3 4 Active ARIPiprazole (ABILIFY) 15 MG tabletIndications: Anxiety,Moderate episode of recurrent major depressive disorder ([facility]) Take 1 tablet (15 mg total) by mouth daily. 90 tablet 3 4 Active sertraline (ZOLOFT) 100 MG tabletIndications: Anxiety,Recurrent major depressive disorder, in partial remission ([facility]) TAKE 2 TABLETS(200 MG) BY MOUTH DAILY 180 tablet 1 4 Active tirzepatide (MOUNJARO) 5 MG/0.5ML injectionIndicatio ns:Diabetes Mellitus Indications: Diabetes ADMINISTER 0.5 ML UNDER THE SKIN EVERY 7 DAYS 2 mL 3 4 Active triamterene-hydroC HLOROthiazide (DYAZIDE) 37.5-25 MG capsuleIndications :Primary hypertension TAKE 1 CAPSULE BY MOUTH DAILY 90 capsule 3 5 Active tirzepatide (MOUNJARO) 5 MG/0.5ML injectionIndicatio ns:Diabetes Mellitus Inject 0.5 mLs into the skin every 7 days. Indications: Diabetes 2 mL 3 5 Active Active Problems Problem Noted Date Diagnosed Date Age-related cataract of both eyes, unspecified age-related cataract type 06/15/2024 B12 deficiency 02/24/2023 Elevated liver enzymes 09/30/2022 Vitamin D deficiency 08/26/2022 Mixed hyperlipidemia 09/04/2021 Iron deficiency anemia secon parvin to inadequate dietary iron intake 05/27/2021 Constipation, chronic 05/27/2021 Nocturnal leg cramps 08/05/2020 Neuropathy 04/10/2020 Diabetic eye exam ([facility]) 07/11/2019 Body mass index (BMI) of 24.0-24.9 in adult 06/26 Abnormal ultrasound of breast 04/19/2018 GERD (gastroesophageal reflux disease) 8 Low vitamin D level 09/05/2017 H/O abnormal mammogram 09/01/2017 Anxiety 06/14/2014 Type 2 diabetes mellitus ([facility]) 03/05 Depression 07/03/2012 Primary hypertension 04/14/2012 Hypothyroidism 04/14/2012 Resolved Problems Problem Noted Date Diagnosed Date Resolved Date Body mass index (BMI) of 26.0-26.9 in adult 12/31/2023 06/15/2024 Malodorous urine 02/24/2023 06/15/2024 Chest pain, unspecified type 11/28/2019 12/04/2021 Screening mammogram, encounter for 07/11/2019 06/06/2020 Obesity (BMI 35.0-39.9 without comorbidity) 04/28/2018 06/15/2024 Colon cancer screening 09/05/201706/06 Encounter for screening mamm ogram for malignant neoplasm of breast 09/01/2017 06/06/2020 Immunization due 10/12/2016 06/06/2020 Screening for heart disease 03/06/2013 06/06/2020 Well woman exam with routine gynecological exam 04/14/2012 06/06/2020 Encounters Date Type Department Care Team Description 10/27/2024 Scan [facility] HEALTH INFO SRVCS Scanned, Doc Med Group 10/08/2024 Telephone [facility] Family & Internal Medicine [address] [address] Juan Mayers FNP Prior Authorization (Gris 5mg) 10/05/2024 Telephone [facility] Family & Internal [address] [address] Juan Mayers FNP Refill Request from Last 3 Months Immunizations Name Administration Dates Next Due Fluzone 6 Months+ Quad (0.5 mL Prefilled Syringe ) 09/04/2021,07/06/2019 Tdap (Generic) 12/05/2017 Family History Medical History Relation Comments Uterine Cancer Child Heart Disease Mother Uterine Cancer Sister 3 sisters with u terine ca Relation Status Comments Child Alive Father Alive Mother Sister Social History Tobacco Use Types Packs/Day Years Used Date Smoking Tobacco: Former Cigarettes Q uit: 1993 Smokeless Tobacco: Never Tobacco Cessation:Counseling Given: Yes Comments:former social smoker Alcohol Use Standard Drinks/Week Comments No 0 (1 standard drink = 0.6 oz pur e alcohol) AUDIT-C Answer Date Recorded Frequency of Alcohol Consumption Never 12/29/2018 Average Number of Drinks Not on file 019 Frequency of Binge Drinking Not on file 01/2019 PHQ-2 Answer Date Recorded Patient Health Questionnaire-2 Score 0 12/23/2023 Comments No Sex and Gender Information Value Date Recorded Sex Assigned at Not on file Legal Sex Female 7:43 PM CDT Gender Identity Female 01/06/2022 8:01 AM CDT Sexual Orientation Straight 01/06/2022 8: 01 AM CDT Last Filed Vital Signs Vital Sign Reading Time Taken Comments Blood Pressure 112/80 06/15/2024 11:17 AM CDT Pulse 96 06/15/2024 11:17 AM CDT Temperature 36.7 C (98.1 F) 06/15/2024 11:17 AM CDT Respiratory Rate 16 06/15/2024 11:17 AM CDT Oxygen Saturation 96% 06/15/2024 11:17 AM CDT Inhaled Oxygen Concentration - - Weight 70.1 kg (154 lb 8 oz) 06/15/2024 11:17 AM CDT Height 170.2 cm (5' 7 ) 06/15/2024 11:17 AM CDT Body Mass Index 24.2 06/15/2024 11:17 AM CDT Plan of Treatment Upcoming Encounters Date Type Department Care Team (Late st Contact Info) Description 12/21/2024 10:00 AM CDT Office Visit [facility] Family & Internal Medicine - [address] [address] Juan Mayers, DISCIPLINARY HEARING OFFICER[address] [address] Health Maintenance Due Date Last Done Comments Cervical Cancer Screening Pap Smear (Age 30 to 64) Every 3 Years 1966 Annual Physical 1969 Hepatitis B Vaccines (1 of 3 - 19+ 3-dose series) 1985 Cervical Cancer Screening Pap with HPV Testing (Age 30 to 64) Every 5 Years 09/06/2022 09/06/2017 Influenza Adult (#1) 2024 09/04/2021, 07/06/20 19 PHQ-2 (Physician [place]) 09/26/2024 12/23/2023 Hemoglobin A1C 12/13/2024 06/15/2024, 03/2 05/2024, 03/31/2023, Additional history exists Pneumococcal Vaccine: Pediatrics (0 to 5 Years) and At-Risk Patients (6 to 64 Years) (1 of 2 - PCV) 12/19/2024 Postponed from 1972 (Patient Refused) Zoster Vaccines (1 of 2) 12/22/2024 Pos tponed from 2016 (Patient Refused) COVID-19 Vaccine (3 - season) 2025 01/27/2021, 01/05/2021 Postponed from 05/27/2024 (Going to Outside Clinic) Cervical Cancer Screening with HPV 06/15/2025 Postponed from 1966 (Going to Outside Clinic) Kidney Health Evaluation 06/15/2025 06/15/2024 Lipid Panel 06/18/2025 06/18/2024, 09/26, 12/04/2021, Additional history exists Mammogram Screening 02/21/2026 02/22/2024, 01/06/2022, 04/26/2018, Additional history exists Diabetes: Retinopathy Eye Exam 07/09/2026 07/09/2024, 06/20/2023, 11/09/2021, Additional history exists Colorectal Cancer Screening Colonoscopy (10 Years) 10/21/2027 10/21/2017 DTaP, Tdap and Td Vaccines (2 - Td or Tdap) 12/06/2027 12/05/2017 Hepatitis C Completed 09/14/2022 Meningococcal B Vaccine Aged Out No l onger eligible based on patient's age to complete this topic Meningococcal Vaccine Aged Out No chasity sunday eligible based on patient's age to complete this topic RSV Immunizations Under 20 Months Aged Out No longer eligible based on patient's age to complete this topic Procedures Procedure Name Priority Date/Time Associated Diagnosis Comments DIABETIC RETINOPATHY EXAM (NEGATIVE)(SCAN ORDER) Routine 07/09/2024 LIPID PANEL Routine 06/18/2024 10:43 AM CDT Type 2 diabetes mellitus with diabetic polyneuropathy, with long-term current use of insulin ([facility]) Mixed hyperlipidemia HEMOGLOBIN, GLYCOSYLATED Routine 06/15/2024 Type 2 diabetes mellitus with diabetic polyneuropathy, with long-term current use of insulin ([facility]) MG SCREENING W CHING ELEAZAR DIGI Routine 02/22/2024 8:06 AM CDT Encounter for screening mammogram for malignant neoplasm of breast HEP C SCANNED ORDERS Routine 09/14/2022 COLONOSCOPY/EGD GENERIC (SCAN ORDER) Routine 10/21/2017 HPV MRNA E6/E7 Routine 09/06/2017 5:04 PM LOAN OFFICER ASSISTANT from Last 3 Months or Most Recently Relevant to Health Maintenance Results * DIABETIC RETINOPATHY EXAM (NEGATIVE) (07/09/2024) us Doc [facility] Scanned SCANNING Final Resu lt [facility] * (ABNORMAL) LIPID PANEL (06/18/2024 10:43 AM CDT) CHOLESTEROL 226(H) <200 MG/DL 06/18/2024 3:22 PM CDT [facility] TRIGLYCERIDES 65 <150 MG/DL 06/18/2024 3:22 PM CDT [facility] HDL 74 >40 MG/DL 06/18/2024 3:22 PM CDT [facility] LDL-C 139(H) <100 MG/DL 06/18/2024 3:22 PM CDT [facility] VLDL CALCULATION 13 5 - 28 MG/DL 06/18/2024 3:22 PM CDT [facility] CHOL/HDL RATIO 3.1 0.0 - 4.0 06/18/2024 3:22 PM CDT [facility] LDL/HDL 1.9 0.41 - 2.13 06/18/2024 3:22 PM CDT [facility] NON HDL CHOLESTEROL 152(H) <140 MG/DL 06/18/2024 3:22 PM CDT [facility] 06/18/2024 10:4 3 AM CDT [facility] Final Result [facility] [place] [address] [facility] [address], * HEMOGLOBIN, GLYCOSYLATED (06/15/2024) HGB A1C 5.2 % [facility] 06/15/[address] [facility] Final Result Performing Organization Address City/[facility]/ZIP Co de Phone Number [facility] [address] [place] [address], [place] * MG SCREENING W CHING ELEAZAR DIGI (02/22/2024 8:06 AM CDT) Anatomical Region Laterality Modality Breast Bilateral Mammography 02/22/2024 10:0 9 AM CDT Impressions 02/22/2024 10:13 AM CDT IMPRESSION: No suspicious mammographic findings. Recommendation: 1. Routine Screening, Bilateral Assessment: ACR BI-RADS 2 - BENIGN FINDING(S) Ordered By: JUAN MAYERS Interpreted By: Alex Del Castillo MD, 02/22/2024 10:09 AM Narrative 02/22/2024 10:13 AM CDT Examination: Screening bilateral mammogram Exam Date: 02/22/2024 7:50 AM Clinical history: Routine screening. Previous right breast biopsy. Comparison: 01/06/2022, 04/26/2018, 09/12/2017 Technique: Digital screening mammography of both breasts was performed. Breast tomosynthesis acquisitions were obtained and reviewed. This study was read with the assistance of a computer-aided detection system. Tissue density: There are scattered areas of fibroglandular density. Findings: The breast parenchymal findings are stable. Right breast biopsy clip noted. Few benign-appearing calcifications. No suspicious masses, malignant appearing calcifications, skin thickening or other abnormalities are present. No significant change from the prior exam. us Juan Mayers DISCIPLINARY HEARING OFFICER MAMMO Final Result * HEP C SCANNED ORDERS (09/14/2022) us [facility] Scanned SCANNING Final Resu lt [facility] * COLONOSCOPY/EGD (10/21/2017) 10/21/2017 us Documents Scanned SCANNING Edited Result - Final [facility] * HPV MRNA E6/E7 (09/06/2017 5:04 PM LOAN OFFICER ASSISTANT) HPV MRNA E6/E7 Not Detected NOT DETECTED 09/10/2017 11:29 PM LOAN OFFICER ASSISTANT Dee[employer] CHANI LOPEZ Comment: This test was performed using the APTIMA(R) HPV Assay([employer]This assay detects E6/E7 viral messenger RNA (mRNA)from 14 high-risk HPV types (16,18,31,33,35,39,45,51,52,56,58,59,66,68).For additional information please refer to:http://education.mytheresa.com/faq/AFH641x8(This link is being provided for informational/educational purposes only.)Test Performed by [employer] [facility][1],[address] [place] [address] [id number] Vaz M.D., Ph.D., Director of [phone], [facility] [id number] FLUID SPECIMEN / Unknown 09/06/2017 5:04 PM LOAN OFFICER ASSISTANT 09/06/2017 5:04 PM LOAN OFFICER ASSISTANT us Generic Conversion Md [facility]/CYTOLOGY ANNA MARIE OSORIO Final Result Performing Organization Address [facility]/ZIP Co de Phone Number Deezer [address] , from Last 3 Months or Most Recently Relevant to Health Maintenance Insurance [facility] Care Teams Mechanical And Auto Body Car Checker Relationship Specialty Start Date End Date Juan Mayers [place] [address] PCP - General NURSE PRACTITIONER 04/20/18
[2024-11-09 12:00] VITALS: BP 136/78; PULSE 100; RESP 14; O2SAT 97
--- OUTSIDE RECORDS SUMMARY | 2024-11-09 12:33 | XMS_ITS | Continuity of Care Document ---
Author Organization [facility] Address [address] [place] [address] Phone Care Team Providers Care Home Therapy Clinician Name Role Phone Moran OD, [place] Unavailable Unavailable Procedures Procedure Date Eye Exam & Treatment Eye Exam, New Patient Advance Directives Directive Yes / No Effective Date File Name No Information Encounters Encounter Description Practice Location Reason(s) For Visit Diagnoses Date Provider Providers Copied on Encounter [facility], [address], [place], [place], [id number], [place] tel:[phone] [facility] No Information Sep-2 6-200 8 Moran OD [place]. [address], [place], [place], [facility], [place]. tel:[phone] [facility], [address] [place] [address] [address], [place], [place], [id number], tel:[phone] [facility] No Information Apr-0 9-200 7 Moran OD [place]. [address] , [address], [place], [address], [place]. tel:[phone] Referring Provider: Izaiah Soliman, [facility], [place], [address]. tel:[phone] Family History Family Member Type Diagnosis Age At Onset No Information Payers Payer name Insurance type Covered constitution party ID Authoriza tion(s) No Information Social [...]
--- OUTSIDE RECORDS SUMMARY | 2024-11-09 12:33 | XMS_ITS | Encounter Summary ---
Author Organization [facility] Address [address] [place] [address] Phone Care Team Providers Care Provider Relations Coordinator Name Role Phone Kyleigh Persaud APRN, LINE MAINTENANCE Primary Care Provider Vega Hayes MD Unavailable [phone] Encounter Details Date Type Department Care Team (Late st Contact Info) Description 03/15/2024 Telephone [facility] [address] [address] Vega Hayes MD [address] [address] Social History Tobacco Use Types [...] st Contact Info) Description 11/30/2024 9:15 AM MECHANICAL LEAD Office Visit [facility] [place] [address] [place] [address] Vega Hayes MD 1052 [facility] [address] [id number] documented as of this encounter Visit Diagnoses Not on filedocumented in this encounter Care Teams Provider Relations Coordinator Relationship Specialty Start Date End Date Kyleigh Persaud, FLASH DEVELOPER, LINE MAINTENANCE [address] [place] [address] PCP - General Internal Medicine 05/11/22 Vega Hayes MD [address] [place] [phone] Consulting Physician Oncology 05/11/22 documented as of this encounter
--- OUTSIDE RECORDS SUMMARY | 2024-11-09 12:33 | XMS_ITS | Encounter Summary ---
Author Organization [facility] Address [address] [place] [address] Care Team Providers Care Part Time Name Role Phone Zeus Moore MD Primary Care Provider Kyleigh Myers Primary Care Provider [phone] Encounter Details Date Type Department Care Team (Late st Contact Info) Description 05/17/2017 Abstract [facility] CONVERSION [address] [place] [address] , Generic ConversionMD Social History Tobacco Use [...] Description 12/21/2024 10:00 AM CDT Office Visit [facility] Family & Internal Medicine [address] [place] [address] Kyleigh Persaud FNP [facility] [place] [address] documented as of this encounter Visit Diagnoses Not on filedocumented in this encounter Care Teams Part Time Relationship Specialty Start Date End Date Zeus Moore MD PCP - General 10/12/16 04/19/18 Kyleigh Persaud FNP [address] [place] [address] PCP - General NURSE PRACTITIONER 04/20/18 documented as of this encounter
--- OUTSIDE RECORDS SUMMARY | 2024-11-09 12:33 | XMS_ITS | Clinical Summary ---
Author Organization [facility] Address [address], [facility] [address] [place] [address] Phone Care Team Providers Care Structural Iron Worker Name Role Phone Kyleigh Persaud APRN, COMPUTER ASSEMBLER Primary Care Provider Vega Hayes MD Unavailable [phone] Allergies No known active allergies Medications Xigduo [...] st Contact Info) Description 11/30/2024 9:15 AM SODA TESTER Office Visit [facility] [address] [address] Vega Hayes MD [address] [place], [place] [phone] Health Maintenance Due Date Last Done Comments [...] patient's age to complete this topic Insurance [facility] Care Teams Structural Iron Worker Relationship Specialty Start Date End Date Kyleigh Persaud APRN, COMPUTER ASSEMBLER [address] [place] [address] PCP - General Internal Medicine 05/11/22 Vega Hayes MD [address] [place] [phone] Consulting Physician Oncology 05/11/22
--- OUTSIDE RECORDS SUMMARY | 2024-11-09 12:33 | XMS_ITS | Encounter Summary ---
Author Organization [facility] Address [address] [place] [address] Care Team Providers Care Tool Grinder Name Role Phone Zeus Moore MD Primary Care Provider Zeus Acuña MD Primary Care Provider Kyleigh Myers Primary Care Provider [phone] Encounter Details Date Type Department Care Team (Late st Contact Info) Description 01/16/2016 Abstract [facility] CONVERSION [address] [place] [address] , Kaci Felipe MD Social History Tobacco [...] Description 12/21/2024 10:00 AM CDT Office Visit [facility] Family & Internal Medicine - [address] [address] Kyleigh Persaud FNP [address] [place] [address] documented as of this encounter Visit Diagnoses Not on filedocumented in this encounter Care Teams Tool Grinder Relationship Specialty Start Date End Date Zeus Moore MD PCP - General 10/12/16 04/19/18 Zeus Moore MD PCP - General 08/09/14 10/11/16 Kyleigh Persaud FNP [address] [place] [address] PCP - General NURSE PRACTITIONER 04/20/18 documented as of this encounter
--- OUTSIDE RECORDS SUMMARY | 2024-11-09 12:33 | XMS_ITS | Encounter Summary ---
Author Organization [facility] Address [address] [place] [address] Care Team Providers Care Livestock Buyer Name Role Phone Zeus Moore MD Primary Care Provider Zeus Acuña MD Primary Care Provider Zeus Acuña MD Primary Care Provider Bria Fabian MD Primary Care Provider Kyleigh Damon Primary Care Provider [phone] Encounter Details Date Type Department Care Team (Late st Contact Info) Description 11/07/2013 Abstract [facility] CONVERSION [address] [place] [address] , Kaci Felipe MD Social History Tobacco [...] Description 12/21/2024 10:00 AM CDT Office Visit [facility] Family & Internal Medicine [address] [place] [address] Kyleigh Persaud FNP [address] [place] [address] documented as of this encounter Visit Diagnoses Not on filedocumented in this encounter Care Teams Livestock Buyer Relationship Specialty Start Date End Date Zeus Moore MD PCP - General 10/12/16 04/19/18 Zeus Moore MD PCP - General 08/09/14 10/11/16 Zeus Moore MD PCP - General 01/11/14 08/08/14 Bria [place]field MD PCP - General 03/13/13 01/10/14 Kyleigh Persaud FNP [address] [place] [address] PCP - General NURSE PRACTITIONER 04/20/18 documented as of this encounter
--- OUTSIDE RECORDS SUMMARY | 2024-11-09 12:33 | XMS_ITS | Clinical Summary ---
Author Organization [facility] Address [facility] [place] [address] Care Team Providers Care Ramp Lead Name Role Phone Juan Mayers ZARA Primary Care Provider [phone] Allergies Active Allergy Reactions Criticality Noted Date [...] polyneuropathy, with long-term current use of insulin ([facility]) Take 1 tablet by mouth 2 (two) [...] Anxiety,Moderate episode of recurrent major depressive disorder ([facility]) Take 1 tablet (15 mg total) by mouth daily. 90 tablet 3 4 Active sertraline (ZOLOFT) 100 MG tabletIndications: Anxiety,Recurrent major depressive disorder, in partial remission ([facility]) TAKE 2 TABLETS(200 MG) BY MOUTH DAILY [...] cramps 08/05/2020 Neuropathy 04/10/2020 Diabetic eye exam ([facility]) 07/11/2019 Body mass index (BMI) of 24.0-24.9 in adult 06/26 Abnormal ultrasound of breast 04/19/2018 GERD (gastroesophageal reflux disease) 8 Low vitamin D level 09/05/2017 H/O abnormal mammogram 09/01/2017 Anxiety 06/14/2014 Type 2 diabetes mellitus ([facility]) 03/05 Depression 07/03/2012 Primary hypertension 04/14/2012 Hypothyroidism [...] SRVCS Scanned, [facility] 10/08/2024 Telephone [facility] Family & Internal Medicine [address] [address] Juan Mayers FNP Prior Authorization (Gris 5mg) 10/05/2024 Telephone [facility] Family & Internal [address] [address] Juan Mayers FNP Refill Request from Last [...] Description 12/21/2024 10:00 AM CDT Office Visit [facility] Medical Group Family & Internal Medicine - [address] [address] Juan Mayers, MULTI SPINDLE OPERATOR[address] [address] Health Maintenance Due Date Last Done Comments Cervical Cancer Screening Pap Smear (Age 30 to 64) Every 3 Years 1966 Annual Physical 1969 Hepatitis B Vaccines (1 of 3 - 19+ 3-dose series) 1985 Cervical Cancer Screening Pap with HPV Testing (Age 30 to 64) Every 5 Years 09/06/2022 09/06/2017 Influenza Adult (#1) 2024 09/04/2021, 07/06/20 19 PHQ-2 (Physician [place]) 09/26/2024 12/23/2023 Hemoglobin A1C 12/13/2024 06/15/2024, 03/2 [...] polyneuropathy, with long-term current use of insulin ([facility]) Mixed hyperlipidemia HEMOGLOBIN, GLYCOSYLATED Routine 06/15/2024 Type 2 diabetes mellitus with diabetic polyneuropathy, with long-term current use of insulin ([facility]) MG SCREENING W CHING ELEAZAR DIGI Routine 02/22/2024 8:06 AM CDT Encounter for screening mammogram for malignant neoplasm of breast HEP C SCANNED ORDERS Routine 09/14/2022 COLONOSCOPY/EGD GENERIC (SCAN ORDER) Routine 10/21/2017 HPV MRNA E6/E7 Routine 09/06/2017 5:04 PM CONCRETE MIXER OPERATOR from Last 3 Months or Most Recently Relevant to Health Maintenance Results * DIABETIC RETINOPATHY EXAM (NEGATIVE) (07/09/2024) us [facility] Scanned SCANNING Final Resu lt [facility] ONBASE * (ABNORMAL) LIPID PANEL (06/18/2024 10:43 AM CDT) CHOLESTEROL 226(H) <200 MG/DL 06/18/2024 3:22 PM CDT [facility] TRIGLYCERIDES 65 <150 MG/DL 06/18/2024 3:22 PM CDT [facility] HDL 74 >40 MG/DL 06/18/2024 3:22 PM CDT [facility] LDL-C 139(H) <100 MG/DL 06/18/2024 3:22 PM CDT [facility] VLDL CALCULATION 13 5 - 28 MG/DL 06/18/2024 3:22 PM CDT [facility] CHOL/HDL RATIO 3.1 0.0 - 4.0 06/18/2024 3:22 PM CDT [facility] LDL/HDL 1.9 0.41 - 2.13 06/18/2024 3:22 PM CDT [facility] NON HDL CHOLESTEROL 152(H) <140 MG/DL 06/18/2024 3:22 PM CDT [facility] 06/18/2024 10:4 3 AM CDT [facility] Final Result [facility] JEN KNEELAND [address] [facility] [place] [address], * HEMOGLOBIN, GLYCOSYLATED (06/15/2024) HGB A1C 5.2 % [facility] 06/15/2024 Juan Mayers [facility] Final Result Performing Organization Address City/[facility]/ZIP Co de Phone Number [facility] [address] [place] [address], [place] * MG SCREENING W CHING ELEAZAR [...] from the prior exam. us Juan Mayers MULTI SPINDLE OPERATOR MAMMO Final Result * HEP C SCANNED ORDERS (09/14/2022) [facility] Scanned SCANNING Final Resu lt [facility] ONBASE * COLONOSCOPY/EGD (10/21/2017) 10/21/2017 us Documents Scanned SCANNING Edited Result - Final [facility] * HPV MRNA E6/E7 (09/06/2017 5:04 PM CONCRETE MIXER OPERATOR) HPV MRNA E6/E7 Not Detected NOT DETECTED 09/10/2017 11:29 PM CONCRETE MIXER OPERATOR [employer] CHANI LOPEZ Comment: This test was performed using the APTIMA(R) HPV Assay([employer]This assay detects E6/E7 viral messenger RNA (mRNA)from 14 high-risk HPV types (16,18,31,33,35,39,45,51,52,56,58,59,66,68).For additional information please refer to:http://education.[employer]/faq/ZCX427s5(This link is being provided for informational/educational purposes only.)Test Performed by [employer] [facility],[address] [place] [id number] Vaz M.D., Ph.D., Director of [phone], [facility] [id number] FLUID SPECIMEN / Unknown 09/06/2017 5:04 PM CONCRETE MIXER OPERATOR 09/06/2017 5:04 PM CONCRETE MIXER OPERATOR us Generic Conversion Md [facility]/CYTOLOGY ANNA MARIE OSORIO Final Result Performing Organization Address [facility]/ZIP Co de Phone Number [employer] [address] , from Last 3 Months or Most Recently Relevant to Health Maintenance Insurance [facility] Care Teams Ramp Lead Relationship Specialty Start Date End Date Juan Mayers [place] [address] PCP - General NURSE PRACTITIONER 04/20/18
[2024-11-09] MEDS: HYDROmorphone HCL INJ (*CRX) 1 MG/ML SYR IV PUSH (13:16)
--- NOTE | 2024-11-09 13:24 | ED_ITS ---
HPI - General Adult General Chief complaint: Extremity Injury, Upper Stated complaint: fall, R side pain Time Seen by Provider: 11/09/24 12:00 History of Present Illness HPI narrative: A 59-year-old female presenting to the emergency department for evaluation for proximal right shoulder pain. Patient states that she had ice on her shoes when she came inside and slipped on the floor and landed on her right shoulder. Patient denies striking head denies loss of consciousness. Patient's primary complaint is the right shoulder. Patient is on medications for diabetes, high cholesterol and hypertension. Related Data Home Medications ?Medication ?Instructions ?Recorded ?Confirmed ?Last Taken ?Type atorvastatin 10 mg tablet mg 10/27/24 Unknown History levothyroxine 137 mcg tablet mcg 10/27/24 Unknown History losartan 50 mg tablet mg 10/27/24 Unknown History montelukast 10 mg tablet mg 10/27/24 Unknown History sertraline 100 mg tablet mg 10/27/24 Unknown History tirzepatide 2.5 mg/0.5 mL mg subcut 10/27/24 Unknown History subcutaneous pen injector (Mounjaro) triamterene 37.5 cap 10/27/24 Unknown History mg-hydrochlorothiazide 25 mg capsule Allergies Allergy/AdvReac Type Severity Reaction Status Date / Time No Known Allergies Allergy Verified 11/09/24 10:45 Review of Systems Review of Systems: All systems reviewed & are unremarkable except as noted in HPI and below PMFSH Past Medical History Medical History History of hypothyroidism History of diabetes mellitus History of hyperlipidemia History of hypertension Family History Family History Mother Hypertension Family history of kidney disease Family history of diabetes mellitus in first degree relative Family history of heart disease in male family member before age 55 Social History Social History Alcohol intake: never Substance use: never Exam Narrative: APPEARANCE: Well appearing, no pain, no distress, well-nourished. HEAD: normocephalic, atraumatic. EYES: PERRLA/EOMI, conjunctivae clear. NOSE: Normal no drainage EARS:TMS clear with good light reflex. THROAT: Pharynx clear, no exudate. NECK: Supple. No adenopathy, no masses. RESPIRATORY: Airway patent, respirations nonlabored. Clear to auscultation bilaterally, no rales, rhonchi, wheezing. CARDIOVASCULAR: Regular rate and rhythm without murmurs rubs or gallops. ABDOMINAL: Soft, nontender, nondistended, normal bowel sounds MUSCULOSKELETAL: Right shoulder pain, limited range of motion, neurovascularly intact NEURO: Alert. Cranial nerves II through XII intact. Grossly intact SKIN: Warm, dry. Normal Color Course Vital Signs Vital signs: Vital Signs Temperature 97.9 F 11/09/24 10:43 Pulse Rate 85 11/09/24 10:43 Respiratory Rate 16 11/09/24 10:43 Blood Pressure 153/87 H 11/09/24 10:43 Pulse Oximetry 100 11/09/24 10:43 Oxygen Delivery Room Air 11/09/24 10:43 Temperature 97.8 F 11/09/24 14:12 Pulse Rate 76 11/09/24 14:12 Respiratory Rate 14 11/09/24 12:00 Blood Pressure 148/84 H 11/09/24 14:12 Pulse Oximetry 98 11/09/24 14:12 Oxygen Delivery Room Air 11/09/24 12:00 Medical Decision Making MDM Narrative Medical decision making narrative: 51-year-old female present to the emergency department for evaluation for right shoulder pain after having a ground level fall. X-ray did show a comminuted proximal humerus fracture. Patient did feel improved after being placed in a shoulder immobilizer. Patient was provided IV medications for pain control. Pa tient is also provided p.o. medications prior to discharge. Orthopedics was consulted but I did not hear back from them. Patient did prefer to be discharged and have outpatient follow-up. Patient was well-appearing at time of discharge. Patient was neurovascularly intact. Differential Diagnosis Differential Diagnosis: Shoulder fracture, shoulder dislocation, neurovascular Vital Signs Vital Signs: Vital Signs Temperature 97.9 F 11/09/24 10:43 Pulse Rate 85 11/09/24 10:43 Respiratory Rate 16 11/09/24 10:43 Blood Pressure 153/87 H 11/09/24 10:43 Pulse Oximetry 100 11/09/24 10:43 Oxygen Delivery Room Air 11/09/24 10:43 Temperature 97.8 F 11/09/24 14:12 Pulse Rate 76 11/09/24 14:12 Respiratory Rate 14 11/09/24 12:00 Blood Pressure 148/84 H 11/09/24 14:12 Pulse Oximetry 98 11/09/24 14:12 Oxygen Delivery Room Air 11/09/24 12:00 Imaging Data Radiologist's impression: Impressions Humerus X-Ray 11/09/24 12:30 IMPRESSION: 1. Comminuted two-part fracture of proximal right humerus. Discharge Plan Discharge Clinical Impression: Fracture of humerus Patient Disposition: Home, Self-Care Condition: Stable Instructions: Antibiotic Form, Proximal Humerus Fracture (ED), Shoulder Immobilizer (ED) Additional Instructions: Ibuprofen for pain control. [place] as needed for additional pain control. Shoulder immobilizer for comfort and shoulder stability. Have close follow-up with Orthopedics. If you have any worsening symptoms or if you have uncontrolled pain then please call or return to the emergency department. Patient Language: Montserratian Prescriptions: New cyclobenzaprine 10 mg tablet 10 mg PO BID PRN (Reason: muscle spasm) Qty: 14 0RF hydrocodone-acetaminophen 5-325 mg tablet 1 tablet PO Q8H PRN (Reason: pain) 7 Days Qty: 20 0RF ondansetron 4 mg tablet,disintegrating 4 mg PO Q8H PRN (Reason: nausea and vomiting) Qty: 14 0RF No Action losartan 50 mg tablet levothyroxine 137 mcg tablet atorvastatin 10 mg tablet sertraline 100 mg tablet triamterene-hydrochlorothiazid 37.5-25 mg capsule montelukast 10 mg tablet Mounjaro 2.5 mg/0.5 mL pen injector SUBCUT prednisone 20 mg tablet 40 mg PO DAILY 5 Days Qty: 10 0RF amoxicillin-pot clavulanate 875-125 mg tablet 1 tablet PO Q12H 7 Days Qty: 14 0RF ondansetron 4 mg tablet,disintegrating 4 mg PO Q6H PRN (Reason: nausea and vomiting) Qty: 20 0RF Follow-up/Referrals: Pedro Calderon MD [Physician] - TALIB,AUDREY MARTINEZ [Primary Care Provider] -
--- NOTE | 2024-11-09 14:06 | PC.NURSE ---
Pt updated that we are waiting for a call back from surgeon.
[2024-11-09 14:12] VITALS: BP 148/84; PULSE 76; TEMP 36.6; O2SAT 98
[2024-11-09] MEDS: HYDROcodone/acetaminophen (*CRX) 7.5-325 MG TABLET 1 TAB PO (15:23)
== END 2024-11-09 15:37 | disposition home or self-care (01) ==
PROVIDERS: Emergency Provider Emergency Medicine; PCP Nurse Practitioner Family
DX: S42.221A 2-part displaced fracture of surgical neck of right humerus, initial encounter for closed fracture (principal); I10 Essential (primary) hypertension; E11.9 Type 2 diabetes mellitus without complications; E78.00 Pure hypercholesterolemia, unspecified; E03.9 Hypothyroidism, unspecified; Z79.899 Other long term (current) drug therapy; Z79.85 Long-term (current) use of injectable non-insulin antidiabetic drugs; W00.0XXA Fall on same level due to ice and snow, initial encounter
CPT/HCPCS: 73060; 96374; 99284; A9270; J1171